=== PATIENT | male | born 1985 | race Two or more races ===

== ENCOUNTER 2024-04-06 01:43 | Emergency (ER) | payer MEDICAID, SELFPAY ==
[2024-04-06 01:51] VITALS: BP 161/93; PULSE 86; RESP 18; TEMP 37; O2SAT 99
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
[2024-04-06] MEDS: FLUORESCEIN SOD 1 MG STRP RIGHT EYE (02:32)
[2024-04-06] MEDS: TETRACAINE PF OP SOL 0.5% 4 ML DRPETTE 1 DROP RIGHT EYE (02:33)
[2024-04-06 02:36] VITALS: RESP 18
== END 2024-04-06 02:36 | disposition home or self-care (01) ==
LOC: SERX 03:49
PROVIDERS: Emergency Provider Emergency Medicine; PCP Family Medicine
DX: H11.003 Unspecified pterygium of eye, bilateral (principal)
CPT/HCPCS: 99283